=== PATIENT | female | born 1995 | race Hispanic/Latino ===

== ENCOUNTER 2021-07-23 13:11 | Emergency (ER) | payer OTHER, SELFPAY ==
[2021-07-23 13:48] VITALS: BP 123/76; PULSE 74; RESP 20; TEMP 36.4; O2SAT 100; BMI 34.2
[2021-07-23 14:22] LABS: COVID19 -Nasal RAPID Negative (Negative)
--- NOTE | 2021-07-23 15:40 | ED.URI ---
HPI - URI/Sore Throat <MERVAT Arnett - Last Filed: 07/23/21 15:46> General Chief Complaint: Upper Respiratory Symptoms Stated Complaint: Congestion, cough, headache Time Seen by Provider: 07/23/21 15:23 Source: patient Mode of arrival: Ambulatory History of Present Illness HPI Narrative: 26-year-old female presents to the emergency department for COVID testing after testing positive for COVID 07/12/2021 and having most of her symptoms resolve, but she still has an ongoing cough. Patient reports that she needs a COVID test [place] Patient denies any fever, shortness of breath, difficulty breathing, wheezing, nausea vomiting or diarrhea. Patient endorses that she did lose her sense of smell and taste while she was sick but this is starting to resolve. Patient endorses having some mild congestion still. Related Data Allergies Allergy/AdvReac Type Severity Reaction Status Date / Time No Known Drug Allergies Allergy Verified 07/23/21 13:48 Review of Systems <MERVAT Arnett - Last Filed: 07/23/21 15:46> Review of Systems Narrative: General: denies fever, chills Head/Neck: denies headache, neck pain Eyes: denies visual changes, eye pain Cardio: denies chest pain, palpitations Respiratory: denies shortness of breath, endorses having a mild cough and congestion GI: denies abdominal pain, nausea, vomiting, or diarrhea : denies dysuria, hematuria MSK: denies joint pain, muscle weakness Skin: denies rash, itching Neuro: denies numbness, tingling Patient History <MERVAT Arnett - Last Filed: 07/23/21 15:46> Social History Smoking Status: Current every day smoker Smoking Status: Current every day smoker tobacco type: vaping alcohol intake frequency: holidays/special occasions only Substance Use Type: does not use Exam <MERVAT Arnett - Last Filed: 07/23/21 15:46> Narrative Exam Narrative: Independently reviewed vitals signs and nursing notes. General: Awake, alert, nontoxic, no cardiorespiratory distress Head/Neck: Atraumatic, neck full range of motion Eyes: EOMI, conjunctiva normal Nose: nares patent, no rhinorrhea Mouth/Throat: moist mucus membranes, posterior pharynx normal, no oral lesions Cardio: Regular rate and rhythm, no peripheral edema Respiratory: respirations unlabored without wheezing, stridor, or rales. No retractions. Pulse oximetry reading 100% on room air GI: Abdomen soft, nontender MSK: Moves all extremities, neurovascularly intact Skin: Normal capillary refill, no rash Neuro: Normal speech and cognition, normal gait Initial Vital Signs Initial Vital Signs: Vital Signs Temperature 97.6 F 07/23/21 13:48 Pulse Rate 74 07/23/21 13:48 Respiratory Rate 20 07/23/21 13:48 Blood Pressure 123/76 07/23/21 13:48 Pulse Oximetry 100 07/23/21 13:48 <Cassi Garcia DO - Last Filed: 07/25/21 15:45> Initial Vital Signs Initial Vital Signs: Vital Signs Temperature 97.6 F 07/23/21 13:48 Pulse Rate 74 07/23/21 13:48 Respiratory Rate 20 07/23/21 13:48 Blood Pressure 123/76 07/23/21 13:48 Pulse Oximetry 100 07/23/21 13:48 Course <MERVAT Arnett - Last Filed: 07/23/21 15:46> Orders Ordered: ED Orders 07/23/21 14:03 COVID19 -Nasal swab/Pre-Proc Stat Vital Signs Vital signs: Vital Signs - 8 hr 07/23/21 13:48 Temperature 97.6 F Pulse Rate 74 Respiratory Rate 20 Blood Pressure 123/76 Pulse Oximetry 100 <Cassi Garcia DO - Last Filed: 07/25/21 15:45> Orders Ordered: ED Orders 07/23/21 14:03 COVID19 -Nasal swab/Pre-Proc Stat Vital Signs Vital signs: Vital Signs - 8 hr 07/23/21 13:48 Temperature 97.6 F Pulse Rate 74 Respiratory Rate 20 Blood Pressure 123/76 Pulse Oximetry 100 MDM - URI/Sore Throat <MERVAT Arnett - Last Filed: 07/23/21 15:46> Lab Data Labs: Lab Results 07/23/21 Range/Units 14:03 SARS-CoV-2 (PCR) Negative (Negative) MDM Narrative Medical decision making narrative: 26-year-old female presents to the emergency department for COVID testing after testing positive for COVID on 07/12/2021. Patient's COVID test today is negative, and her only symptom is a lingering. Patient is otherwise well, without any respiratory distress, reports that she will be able to go back to work if her COVID test is negative. I assume that her COVID infection has resolved since her test was negative today. Patient is appropriate and amenable to discharge home. Vital signs are stable on repeat examination is unremarkable. Patient has been informed of results. Patient has been given strict return to ER precautions for any new or worsening symptoms. Patient understands to follow up closely with outpatient providers as instructed. Patient understands plan and agrees to discharge home. All questions and concerns answered at this time. <Cassi Garcia DO - Last Filed: 07/25/21 15:45> Lab Data Labs: Lab Results 07/23/21 Range/Units 14:03 SARS-CoV-2 (PCR) Negative (Negative) Discharge Plan Departure Patient Disposition: Home Clinical Impression: Encounter for laboratory testing for COVID-19 virus Activity Restrictions/Additional Instructions: *You have been diagnosed with a negative COVID-19 test, and resolved COVID-19 infection. Please return to the emergency department if he have any new or worsening concerns. *Please follow up with your primary care provider in 2-3 days, call for an appointment. Let them know you were seen in the Emergency Department and that we ask that you be seen in follow up. We will electronically transmit a record of today's note if your PCP is in our system *If you do not have a primary care provider please contact the [facility] Resource line at [phone]. They will ask some questions about your medical history and help get you set up with a doctor in the community. *Return to Emergency Department if you should have any new, worsening or concerning symptoms, such as [fever greater than 101F, chills, worsening pain, persistent vomiting or other bothersome symptoms] <Cassi Garcia DO - Last Filed: 07/25/21 15:45> Cosign ED Attending Shad Attestation: I was immediately available in the department for consultation. Documentation has been reviewed. I agree with assessment and plan.
== END 2021-07-23 15:48 | disposition home or self-care (01) ==
PROVIDERS: Emergency Medicine; Emergency Provider Nurse Practitioner Critical Care Medicine
DX: Z86.16 Personal history of COVID-19 (principal); F17.290 Nicotine dependence, other tobacco product, uncomplicated
CPT/HCPCS: 87635; 99281; C9803